=== PATIENT | male | born 1985 | race Caucasian/White ===

== ENCOUNTER → 2016-11-03 | Outpatient (CLI) | payer OTHER ==
[~2016-11-03] MED LIST: CEFD300C37 PO
== END | disposition home or self-care (01) ==
LOC: CFH 15:53
PROVIDERS: ATTEND Physician Assistant Surgical
DX: M25.871 Other specified joint disorders, right ankle and foot (principal); M25.471 Effusion, right ankle; S93.431A Sprain of tibiofibular ligament of right ankle, initial encounter; M25.371 Other instability, right ankle; X58.XXXA Exposure to other specified factors, initial encounter; Y93.89 Activity, other specified; Y92.89 Other specified places as the place of occurrence of the external cause; Y99.8 Other external cause status

== ENCOUNTER 2020-10-02 17:22 | Emergency (ER) | payer OTHER ==
[~2020-10-02] VITALS: Ht 162.6 cm; Wt 110.0 kg
--- NOTE | 2020-10-02 17:34 | NUR ---
PATIENT WALKED BACK FROM TRIAGE WITH CHIEF C/O BACK AND HEAD PAIN INTERMITTENTLY SINCE MAY. 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
[2020-10-02] MEDS ORDERED: METHOCARBAMOL 500 MG TABLET ONE (18:17)
[2020-10-02] MEDS ORDERED: KETOROLAC 30 MG/1 ML ONE (18:17)
[2020-10-02] MEDS ORDERED: METHOCARBAMOL 750 MG TABLET ONE (18:20)
[2020-10-02 18:21] VITALS: BP 117/58
--- NOTE | 2020-10-02 18:28 | NUR ---
PATIENT MEDICATED PER [facility].
[2020-10-02] MEDS ORDERED: KETOROLAC 30 MG/1 ML IM ONE (18:30)
[2020-10-02] MEDS ORDERED: METHOCARBAMOL 750 MG TABLET PO ONE (18:30)
--- NOTE | 2020-10-02 18:48 | NUR ---
report recieved from helio sorenson
== END 2020-10-02 19:17 | disposition home or self-care (01) ==
LOC: MERGE 17:22 → ED 18:35
DX: M54.2 Cervicalgia (principal); M54.5 Low back pain; M54.6 Pain in thoracic spine; M62.830 Muscle spasm of back
CPT/HCPCS: 96372; 99283; J1885